=== PATIENT | female | born 2000 | race African-American/Black ===

== ENCOUNTER 2024-02-28 01:36 | Emergency (ER) | payer SELFPAY ==
[~2024-02-28] VITALS: Ht 170.2 cm; Wt 69.0 kg
[2024-02-28 01:38] VITALS: O2SAT 97
[2024-02-28 03:23] LABS: BASOPHILS % 0.2 % (0.0-2.0); EOSINOPHILS % 1.6 % (0.0-5.0); HEMATOCRIT. 37.4 % (36.0-48.0); HEMOGLOBIN. 12.2 g/dL (12.0-16.0); LYMPHOCYTES % 67.9 % (20.0-50.0); MEAN CORPUSCULAR HEMOGLOBIN 27.2 pg (28.0-32.0); MEAN CORPUSCULAR HGB CONC 32.6 g/dL (31.0-37.0); MEAN CORPUSCULAR VOLUME 83.3 fL (81.0-99.0); MEAN PLATELET VOLUME 8.9 fl (7.4-10.4); MONOCYTES % 7.3 % (2.0-8.0); PLATELET 271 x1000/uL (130-400); RED BLOOD CELL COUNT 4.49 mill/uL (4.2-5.4); RED CELL DISTRIBUTION WIDTH 13.5 % (11.6-14.6); WHITE BLOOD COUNT 6.3 x1000/uL (4.5-11.0)
[2024-02-28 03:24] LABS: CARBON DIOXIDE 23 mEq/L (21-32); CHLORIDE 105 mEq/L (98-107); POTASSIUM 3.1 mEq/L (3.5-5.1); SODIUM 140 mEq/L (136-145)
[2024-02-28 03:25] LABS: CALCIUM 9.3 mg/dL (8.7-10.4)
[2024-02-28 03:29] LABS: GLUCOSE 155 mg/dL (70-105)
[2024-02-28 03:30] LABS: UREA NITROGEN BLOOD 9 mg/dL (9-23)
[2024-02-28] MEDS: LEVETIRACETAM 1000MG PREMIX 100 ML IV ONE (03:34)
[2024-02-28] MEDS: SODIUM CHLORIDE 0.9% 1,000 ML IV ONE (03:34)
[2024-02-28 03:40] LABS: HCG SCREEN NEGATIVE
[2024-02-28 04:30] VITALS: BP 116/79; PULSE 98; RESP 17; TEMP 98.4
[2024-02-28] MEDS ORDERED: KEPP500 MT (05:08)
== END 2024-02-28 05:34 | disposition home or self-care (01) ==
LOC: ER 01:56
DX: G40.909 Epilepsy, unspecified, not intractable, without status epilepticus (principal)
CPT/HCPCS: 99285; 96365; 70450; 80048; 84703; 85025; 36415; J1953; J7030